=== PATIENT | male | born 1970 | race Caucasian/White ===

== ENCOUNTER 2022-01-21 16:00 | Emergency (ER) | payer MEDICAID ==
[2022-01-21] MEDS ORDERED: Take Home: Amoxicillin/Clavulanate K 875-125 MG Tab, 2 Tab Pack PO ONE (16:16)
[2022-01-21] MEDS ORDERED: Take Home: Acetaminophen/Codeine 300 MG/30 MG, 5 Tab Pack PO ONE (16:16)
[2022-01-21 17:24] VITALS: BP 124/79; PULSE 110
== END 2022-01-21 16:38 | disposition home or self-care (01) ==
LOC: VM.ED 16:00
DX: K08.89 Other specified disorders of teeth and supporting structures (principal); Z88.1 Allergy status to other antibiotic agents; Z88.5 Allergy status to narcotic agent; Z79.899 Other long term (current) drug therapy
CPT/HCPCS: 99282; 99283

== ENCOUNTER 2022-02-05 16:58 | Emergency (ER) | payer MEDICAID ==
[2022-02-05 17:12] VITALS: BP 171/106; PULSE 98
[2022-02-05] MEDS ORDERED: Take Home: Acetaminophen/Codeine 300 MG/30 MG, 5 Tab Pack PO ONE (17:13)
== END 2022-02-05 17:23 | disposition home or self-care (01) ==
LOC: VM.ED 16:58
DX: K02.9 Dental caries, unspecified (principal); F17.210 Nicotine dependence, cigarettes, uncomplicated; Z88.1 Allergy status to other antibiotic agents; Z88.5 Allergy status to narcotic agent; Z79.899 Other long term (current) drug therapy
CPT/HCPCS: 99282; A9270